=== PATIENT | female | born 1935 | race Caucasian/White ===

== ENCOUNTER 2022-06-09 08:33 | Emergency (ER) | payer MEDICARE, SELFPAY ==
--- NOTE | 2022-06-09 08:34 | ED.EPISTAXIS ---
HPI - Epistaxis General Chief complaint: Epistaxis Stated complaint: Bloody nose Time Seen by Provider: 06/09/22 08:34 Source: patient and RN notes reviewed History of Present Illness HPI Narrative: Patient is an 86-year-old female who presents the urgent care with her daughter. States that she started a bloody nose at 7:30 AM and could not get it to stop bleeding. Patient has a chronic history of bloody nose out of the left nostril. Patient states that she was looking down reading a book at the time her nosebleed started. Patient states that she has had them since she was a young girl, they improved after starting the cycle, and have gotten worse over the last several years. Patient has seen an ENT and has had cautery done several different times. Patient denies any headaches, trauma or injury to the nose, dizziness, blurry vision. No other acute complaints. No acute distress noted. Patient and daughter aware of the plan of care. Some parts of this dictation were generated by voice recognition software and may contain typographical and/or grammatical inaccuracies. Related Data Home Medications Medication Instructions Recorded Confirmed antiarthritic combination no.2 900 mg PO 11/15/20 11/20/21 mg tablet (glucosamine-chondroitin) biotin 5 mg capsule 5 mg PO DAILY 11/15/20 11/20/21 calcium carbonate 600 mg-vitamin 1 tablet PO DAILY 11/15/20 11/20/21 D3 20 mcg (800 unit) chewable tablet (Caltrate 600 plus D) coenzyme Q10 10 mg capsule 10 mg PO ONCE 11/15/20 11/20/21 denosumab 60 mg/mL subcutaneous 60 mg subcut [id number] 11/15/20 11/20/21 syringe (Prolia) levothyroxine 88 mcg capsule 88 mcg PO DAILY 11/15/20 11/20/21 loteprednol etabonate 0.2 % eye 1 drp ophthalmic (eye) QID 11/15/20 11/20/21 drops,suspension (Alrex) omega-3 fatty acids 500 mg capsule 500 mg PO DAILY 11/15/20 11/20/21 valacyclovir 500 mg tablet 500 mg PO DAILY 11/15/20 11/20/21 bacitracin 500 unit/gram eye 1 applic LEFT EYE DAILY PRN 11/20/21 11/20/21 ointment erythromycin 5 mg/gram (0.5 %) eye 1 applic LEFT EYE DAILY PRN 11/20/21 11/20/21 ointment Allergies Allergy/AdvReac Type Severity Reaction Status Date / Time Penicillins AdvReac passed Verified 11/20/21 10:11 out in college after getting injection of penicillin Review of Systems Review of Systems: CONSTITUTIONAL: Denies fever, chills, or sweats. EYES: Denies visual changes, redness, or discharge. ENT: Denies rhinorrhea, congestion, sore throat, or otalgia. Reports of nosebleed CARDIOVASCULAR: Denies chest pain, palpitations, or edema. RESPIRATORY: Denies cough or dyspnea. GASTROINTESTINAL: Denies abdominal pain, nausea, vomiting, or diarrhea. GENITOURINARY: Denies dysuria or hematuria. SKIN: Denies rash or itching. MUSCULOSKELETAL: Denies back pain, joint pain, or myalgia. NEUROLOGIC: Denies headache, numbness, or weakness. All other systems reviewed are negative, except as documented in HPI. 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 There is no relevant family history pertinent to the patient
[2022-06-09 08:41] VITALS: BP 157/82; PULSE 81; RESP 16; TEMP 36.6; O2SAT 100
== END 2022-06-09 09:00 | disposition home or self-care (01) ==
PROVIDERS: Emergency Provider Nurse Practitioner Family; PCP Family Medicine
DX: R04.0 Epistaxis (principal); E03.9 Hypothyroidism, unspecified; M85.80 Other specified disorders of bone density and structure, unspecified site
CPT/HCPCS: 99211; G0463

== ENCOUNTER 2024-03-02 01:08 | Day surgery (SDC) | payer MEDICARE, SELFPAY ==
--- NOTE | 2024-03-01 12:40 | PC.NURSE ---
Report to the Outpatient Waiting Room, entrance under the green pavilion located off [facility], at time _1:00 PM on date __03/02/24 . Planned Procedure Time: _3:00PM . Time changes happen often and if your time is changed the preop area will call you the afternoon before. - You and your visitor will be asked to self-screen and do not enter if you have any COVID symptoms. - A mask is optional within the hospital at this time. Patients may have clear liquids (water, carbonated beverages, clear teas, apple juice) until 3 hours prior to surgery(NOON) with a maximum of 20 ounces. - No food from midnight until time of surgery - Infants may have breast milk until 4 hours before surgery, infant formula 6 hours prior to surgery. - Children will be allowed to drink immediately following surgery. If applicable, please bring a bottle or sippy cup to assist with drinking. Juice, water, soda, and popsicles are readily available. For infants on formula, please bring formula the day of surgery. Pacifiers are allowed. Take the following medications with a SIP of water the morning of surgery: ___LEVOTHYROXINE, EYE DROP DO NOT STOP ANY OF YOUR OTHER PRESCRIPTION MEDICATIONS PRIOR TO SURGERY ?EXCEPT THE FOLLOWING Medications to discontinue per physician ____HOLD ALL VITAMINS AND SUPPLEMENTS LAST DOSE 02/29/24 Please no make-up, nail jamaican, hairspray, perfume, deodorant, or body powder the day of surgery. No jewelry (including any body piercings) or valuables the day of surgery, leave them at home. Please take a shower or bath the night before, or the morning of, surgery with an antibacterial soap. Wear comfortable, loose fitting clothing. Children are encouraged to wear pajamas. - Jewelry must be removed prior to entering the operating room. Rings and piercings that are not removed may be cut off. - The hospital will not accept responsibility for valuables. - Please leave all valuables, including medications, at home the day of surgery. If you are going home after surgery, a licensed [employer] flatbed driver must drive you home. - NO public transportation without another adult if you receive anesthesia. - We recommend that an adult stay with you for 24 hours following discharge. - We also recommend that you do not drive, make important decision, drink alcoholic beverages, or take any drugs that were not prescribed by your health care provider for at least 24 hours after your discharge time. Follow any additional instructions given to you from your surgeon. If you or anyone in your household have experienced Covid symptoms in the past week, please notify your surgeon or the nurse liaison at the phone number below for possible testing. Telephone instructions given to __PT and asked if any additional questions and then verbalized understanding. Patient advised to call surgeon office or pre surgery nurse liaison [phone] if any additional questions.
[2024-03-01 12:47] VITALS: BMI 23.8
--- NOTE | 2024-03-01 17:15 | PM.IMHP ---
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 Hypothyroidism Osteopenia Vaginal delivery x2 Surgical History Surgical History H/O thyroidectomy History of laparoscopic-assisted vaginal hysterectomy History of tonsillectomy Family History Family History Sibling Acute myocardial infarction brother Testicular cancer Leukemia brother Heart disease Father Cerebrovascular accident Hypertension Mother Hypertension Social History Social History Smoking status: Never smoker Alcohol intake: current Alcohol use details: monthly Substance use: never Do You Feel Safe in your Home?: No Lack of Transportation: No Lack of Food: Never True Current Housing: I Have Housing Concerned About Future Housing: No Difficulty Paying Gas/Electric Bills: No Difficulty Paying for Meds: No Currently Unemployed: No Education: Master's Degree or Higher Difficulty w/ Childcare or Family Care: No Living arrangements: alone Spiritual care concerns: No Meds Home Medications and Allergies Home Medications Medication Instructions Recorded Confirmed Type antiarthritic combination no.2 900 900 mg PO DAILY 11/15/20 03/01/24 History mg tablet (glucosamine-chondroitin) biotin 5 mg capsule 5 mg PO DAILY 11/15/20 03/01/24 History coenzyme Q10 10 mg capsule 200 mg PO DAILY 11/15/20 03/01/24 History denosumab 60 mg/mL subcutaneous 60 mg subcut [id number] 11/15/20 03/01/24 History syringe (Prolia) levothyroxine 88 mcg capsule 88 mcg PO DAILY 11/15/20 03/01/24 History loteprednol etabonate 0.2 % eye 1 drp LEFT EYE DAILY 11/15/20 03/01/24 History drops,suspension (Alrex) omega-3 fatty acids 500 mg capsule 500 mg PO DAILY 11/15/20 03/01/24 History valacyclovir 500 mg tablet 500 mg PO QNOON 11/15/20 03/01/24 History bacitracin 500 unit/gram eye 1 applic LEFT EYE HS PRN HERPES 11/20/21 03/01/24 History ointment quinine-vitamin E capsule 1 cap PO HS 03/01/24 03/01/24 History Allergies Allergy/AdvReac Type Severity Reaction Status Date / Time Penicillins AdvReac passed Verified 03/01/24 12:26 out in college after getting injection of penicillin Exam Narrative: left-sided find tissue under vessel telangiectatic vessel Assessment and Plan Assessment and plan (1) Epistaxis: Code(s): R04.0 - Epistaxis Status: Acute Assessment and Plan: OR left-sided nasal cautery. Knee bipolar and suction Bovie. She will do very anterior rhinoscopy the headlight. On a okay. We discussed bleeding infection damage surrounding structure need further procedures failure to resolve symptoms postoperative bleeding. Damage to any structure in a insertion of LMA damage to any structure the clavicles by myself need for routine follow-up time off work time off school and her risk narcotic use in her risk medication use.
[2024-03-02] VITALS (8 sets, daily range): BP systolic 119–163; BP diastolic 64–85; PULSE 67–133; RESP 12–20; TEMP 36.3; O2SAT 95–100
--- NOTE | 2024-03-02 07:19 | WPDHPUPDATE1 ---
History and Physical Update Update Date/Time: 03/02/24 07:19 History and Physical has been reviewed, including an updated exam of the patient. There are NO changes in the patient's condition. Risks, benefits, and alternatives have been discussed and questions answered. Patient agrees to proceed with procedure.
--- NOTE | 2024-03-02 13:32 | ECG_ITS ---
SEE SCANNED COPY FOR CONFIRMED REPORT. MTDD
--- NOTE | 2024-03-02 14:11 | WPDANESEPPF ---
Anes - Initial Pre Proc Eval Procedure: Operation Date: 03/02/24 15:00 Proposed Procedures p Bilateral Nose Exam under Anesthesia with Nasal Cautery - Cooper Bruce MD Date/Time: 03/02/24 14:11 Surgeon: Cooper Bruce MD Pre Op Diagnosis: Epistaxis Patient Data Age: 88 Gender: F Height: 1.57 m Weight: 58.9 kg Last Vital Signs Temp 36.3 C L 03/02/24 13:06 Pulse 133 H 03/02/24 13:06 Resp 18 03/02/24 13:06 BP 152/67 H 03/02/24 13:06 Pulse Ox 99 03/02/24 13:06 O2 Del Method Room Air 03/02/24 13:06 Allergies Allergy/AdvReac Type Severity Reaction Status Date / Time Penicillins AdvReac passed Verified 03/01/24 12:26 out in college after getting injection of penicillin Home Medications Medication Instructions Recorded Confirmed Type antiarthritic combination no.2 900 900 mg PO DAILY 11/15/20 03/01/24 History mg tablet (glucosamine-chondroitin) biotin 5 mg capsule 5 mg PO DAILY 11/15/20 03/01/24 History coenzyme Q10 10 mg capsule 200 mg PO DAILY 11/15/20 03/01/24 History denosumab 60 mg/mL subcutaneous 60 mg subcut [id number] 11/15/20 03/01/24 History syringe (Prolia) levothyroxine 88 mcg capsule 88 mcg PO DAILY 11/15/20 03/01/24 History loteprednol etabonate 0.2 % eye 1 drp LEFT EYE DAILY 11/15/20 03/01/24 History drops,suspension (Alrex) omega-3 fatty acids 500 mg capsule 500 mg PO DAILY 11/15/20 03/01/24 History valacyclovir 500 mg tablet 500 mg PO QNOON 11/15/20 03/01/24 History bacitracin 500 unit/gram eye 1 applic LEFT EYE HS PRN HERPES 11/20/21 03/01/24 History ointment quinine-vitamin E capsule 1 cap PO HS 03/01/24 03/01/24 History Patient hx anesthesia problems: none Family hx anesthesia problems: none Results Review: All pre-operative results and documents have been reviewed as part of the pre-operative evaluation. 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 Hypothyroidism Left bundle branch block Osteopenia Vaginal delivery x2 Surgical History Surgical History H/O thyroidectomy History of laparoscopic-assisted vaginal hysterectomy History of tonsillectomy Family History Family History Sibling Acute myocardial infarction brother Testicular cancer Leukemia brother Heart disease Father Cerebrovascular accident Hypertension Mother Hypertension Social History Social History Smoking status: Never smoker Alcohol intake: current Alcohol use details: monthly Substance use: never Do You Feel Safe in your Home?: No Lack of Transportation: No Lack of Food: Never True Current Housing: I Have Housing Concerned About Future Housing: No Difficulty Paying Gas/Electric Bills: No Difficulty Paying for Meds: No Currently Unemployed: No Education: Master's Degree or Higher Difficulty w/ Childcare or Family Care: No Living arrangements: alone Spiritual care concerns: No Anes - Eval Final PreProcedure Day of Procedure 03/02/24 14:11 Patient weight: normal Heart: regular rate and rhythm Lungs: clear to auscultation Airway: Mallampati scale class II Neurological: alert and oriented Last oral intake: >/= 8 hours ASA classification: III Emergent: no Anesthetic plan: proceed Anesthesia type and monitoring: general ETT and standard monitoring Results Review: All pre-operative results and documents have been reviewed as part of the pre-operative evaluation. Informed Consent: The patient's anesthetic plan and its attendant risks and benefits were discussed with the patient/family/POA. Questions were solicited and answers provided to the satisfaction of th
--- NOTE | 2024-03-02 15:39 | SUR.PREOP ---
1530 PT INFORMED OF SURGERY TIME DELAY, WISHES TO WAIT. WARM BLANKET APPLIED TO PT. REPORT GIVEN TO Quiana REYES RN.
[2024-03-02] MEDS: LACTATED RINGERS 1,000 ML 30 ML IV CONT (17:40)
--- NOTE | 2024-03-02 17:51 | P.OP_ITS ---
Procedure Note - Detailed Date of Procedure 03/02/24 Pre-op Diagnosis Epistaxis Left-sided Post-op Diagnosis Same Procedure Performed left-sided nasal cautery Surgeon Cooper Bruce MD Anesthesia General Indications see above Findings highly vascular left-sided anterior lesion measuring about 5 x 5 mm. Had to take the cautery all the way down to the septum right-sided appeared vascularized healthy Description of Procedure patient identified consent verified preop. Patient brought operating. Time- out performed. General anesthesia induced endotracheal tube secured. Patient prepped draped position procedure confirmed 2nd time-out performed. Left-sided viewed cauterized with Bovie suction electrocautery setting of 10 intermittent bleeding on the edges of the cautery bipolar electrocautery lysed to stop these. Indent the procedure the septum was aggressively rub to try to induce more bleeding no bleeding was noted. Entire lesion was cauterized. Mupirocin ointment was placed. Patient tolerated the procedure well blood loss about 3 cc. I performed all dictated portions procedure no complications. Care the patient given back to Anesthesiology Estimated Blood Loss 3 Drains No Packing No Pathology None sent Complications No immediate complications Condition Stable Disposition PACU [facility] Billing Surgery - Charge Forward: Surgery Billing
[2024-03-02] MEDS: ACETAMINOPHEN 325 MG TABLET 650 MG PO (19:06)
== END 2024-03-02 19:25 | disposition home or self-care (01) ==
PROVIDERS: PCP Family Medicine; Visit Provider Otolaryngology
PROC: (CPT 30903; principal; 2024-03-02 15:00)
DX: R04.0 Epistaxis (principal); E89.0 Postprocedural hypothyroidism; Z85.72 Personal history of non-Hodgkin lymphomas
CPT/HCPCS: 30903; 93005; A9270; J0330; J1100; J2405; J2704; J3010; J7120